=== PATIENT | male | born 1980 | race Caucasian/White ===

== ENCOUNTER 2021-12-06 11:31 | Emergency (ER) | payer BC, SELFPAY ==
[2021-12-06 11:40] VITALS: BP 124/80; PULSE 70; RESP 18; TEMP 36.9; O2SAT 99
--- NOTE | 2021-12-06 11:43 | ED.SKABFB ---
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 He denies any contact with plant or change in soap or any other kind of care product Related Data Allergies Allergy/AdvReac Type Severity Reaction Status Date / Time HYDROMORPHONE HCL Allergy Mild Hives Uncoded 12/06/21 12:07 Review of Systems Review of Systems: CONSTITUTIONAL: Denies fever, chills, sweats. EYES: Denies visual changes, redness, discharge. ENT: Denies rhinorrhea, congestion, sore throat, otalgia. CARDIOVASCULAR: Denies chest pain, palpitations, edema. RESPIRATORY: Denies dyspnea, wheezing, cough GASTROINTESTINAL: Denies abdominal pain, nausea, vomiting, diarrhea. GENITOURINARY: Denies dysuria, hematuria, abnormal discharge SKIN: Has rash on chest and back that looks particularly coalesced and dry at the bottom and behind knees NEUROLOGIC: Denies numbness, or focal weakness. PSYCHIATRIC: Denies anxiety or depression. [facility] Family History Family History Father Cerebrovascular accident Social History Social History Smoking status: Current every day smoker Comments At time of signature, I agree with nursing past medical, surgical, social and family history. There is no relevant family history pertinent to the presenting complaint. Exam Narrative: GENERAL: This is a well-nourished, well-developed patient, in mild distress. HEAD: normocephalic, atraumatic. EYES: . Sclera clear/white. Vision is grossly intact. EARS: External ears normal, Hearing grossly intact. NOSE: External nose normal without nasal discharge, nares without redness, no rhinorrhea. THROAT: Mucous membranes moist, NECK: Neck supple, non-tender CARDIOVASCULAR: Regular rate and rhythm without murmurs, gallops, or rubs. RESPIRATORY: Clear to auscultation. Breath sounds equal bilaterally. No wheezes, rales, or rhonchi. GASTROINTESTINAL: Not performed SKIN: warm, intact with red coalesced red rash on back, worse on the bottom part of back and across mid chest he also has coalesced rash on bilateral flexor area of knees NEURO: awake, alert, and oriented to person, place and time. There were no obvious focal neurologic abnormalities. Steady gait EXTREMITIES: Normal range of motion. BACK: Nontender without deformity Course Course Emergency Course: Patient comes with a rash with unknown etiology that occurs once a year only but does occur every year denies any change in care products are exposure to any kind of plant Given prednisone 60 here and started on Medrol Dosepak along with Pepcid, may use Benadryl if starts to itch Level of Care: Express Care Visit Vital Signs Vital signs: Vital Signs Temperature 98.4 F 12/06/21 11:40 Pulse Rate 70 12/06/21 11:40 Respiratory Rate 18 12/06/21 11:40 Blood Pressure 124/80 12/06/21 11:40 Pulse Oximetry 99 12/06/21 11:40 Oxygen Delivery Room Air 12/06/21 11:40 Temperature 98.4 F 12/06/21 11:40 Pulse Rate 70 12/06/21 11:40 Respiratory Rate 18 12/06/21 11:40 Blood Pressure 124/80 12/06/21 11:40 Pulse Oximetry 99 12/06/21 11:40 Oxygen Delivery Room Air 12/06/21 11:40 MDM - Skin/Abscess/Foreign Bdy MDM Narrative Medical decision making narrative: Rash looks Tal but occurs only once a year at the beginning of the season when it is warm and does not occur the rest of the year; cannot be tied to any kind of exposure or product Differential Diagnosis Differential diagnosis: Likely ab
[2021-12-06] MEDS: predniSONE 20 MG TABLET 60 MG PO (12:10)
== END 2021-12-06 12:12 | disposition home or self-care (01) ==
PROVIDERS: Emergency Provider Nurse Practitioner; PCP Family Medicine
DX: R21 Rash and other nonspecific skin eruption (principal); F17.200 Nicotine dependence, unspecified, uncomplicated
CPT/HCPCS: 99213; G0463; J7512

== ENCOUNTER 2024-05-25 09:23 | Emergency (ER) | payer BC, SELFPAY ==
--- NOTE | ~2024-05-25 | XR_ITS ---
EXAMINATION: XR foot LT min 3V DATE: 05/25/2024 10:18 INDICATION: Left foot foreign body. Abscess. TECHNIQUE: 3 views of left foot were obtained. COMPARISON: None. FINDINGS: Alignment is normal. No fracture. There is mild osteoarthritis of first metatarsophalangeal joint. There is an enthesophyte at the plantar aspect of calcaneal tuberosity. IMPRESSION: 1. No radiopaque foreign body. 2. No evidence of osteomyelitis. Reviewed, dictated and finalized at location A. [facility]
--- NOTE | 2024-05-25 09:31 | ED.SKABFB ---
HPI - Skin/Abscess/Foreign Bdy General Chief complaint: Skin/Abscess/Foreign Body Stated complaint: Abscess on Lt foot Time Seen by Provider: 05/25/24 09:31 Source: patient, RN notes reviewed and old records reviewed Mode of arrival: ambulatory Limitations: no limitations History of Present Illness HPI narrative: 43-year-old male to Express Care with complaint of painful lesion to left lateral plantar foot. Patient states he 1st noticed it on Wednesday and believed that there was a foreign body. Patient states he attempted to remove suspected foreign body twice at home without success. Patient states that he has to be on his feet a lot for work. patient denies pain radiating into lower extremity, drainage, fever, pertinent medical history. Patient reports taking 2 Aleve prior to arrival. Patient resting comfortably in exam room in no acute distress. Related Data Allergies Allergy/AdvReac Type Severity Reaction Status Date / Time HYDROMORPHONE HCL Allergy Mild Hives Uncoded 05/25/24 09:32 Review of Systems Review of Systems: All systems reviewed & are unremarkable except as noted in HPI and below Constitutional: Constitutional: Reports no additional constitutional complaints Eyes: Eyes: Reports no additional eye complaints ENT: Reports system reviewed and no additional complaints, except as documented Cardiovascular: Cardiovascular: Reports no additional cardiovascular complaints, Denies chest pain and Denies dyspnea Respiratory: Respiratory: Reports no additional respiratory complaints, Denies cough and Denies dyspnea Musculoskeletal: Musculoskeletal: Reports no additional musculoskeletal complaints Neurologic: Reports system reviewed and no additional complaints, except as documented Psychiatric: Psychiatric: Reports no additional psychiatric complaints PMFSH Family History Family History Father Cerebrovascular accident Social History Social History Smoking status: Current every day smoker Comments At the time of my signature, I reviewed and agree with the nursing past medical, surgical, social, and family history. There is no relevant family history pertinent to the patient complaint. Exam Const: General: cooperative, healthy appearing, comfortable, no acute distress, alert and well nourished Nutritional Appearance: well nourished Orientation/consciousness: patient oriented x3 Limitations: no limitations HENMT: Head: normal to inspection Ears: external ears normal Face/Nose/Sinus: Normal external nose present, Normal nares present, normal facial exam, No erythema and No edema Face and sinus: normal facial exam, no erythema and no edema Mouth: Yes Normal oral and palatal mucosa present Eyes: General: appearance normal, both eyes and all related structures Neck: Neck: normal visual inspection, full ROM and no meningeal signs Lymphatic: no lymphadenopathy noted and no lymphedema noted Chest: Chest palpation & inspection: normal inspection of the chest Resp: Effort & Inspection: normal respiratory effort and able to speak in complete sentences Auscultation: clear to auscultation bilaterally Cardio: Jugular venous distension: no JVD Rate: regular rate Rhythm: regular rhythm Back/Spine/Pelvis: Cervical Spine: cervical ROM normal Skin: General skin exam: normal color, no rashes or lesions noted and turgor normal Neuro: General: patient oriented x3, gait normal, moves all extremities and no meningeal signs Speech: normal speech Gait exam (Neuro): Normal gait present Extrem: General: normal to inspection, full ROM and capillary refill normal Psych: Appearance: grossly normal and well kempt Course Course Emergency Course: Some parts of this dictation were generated by voice recognition software and may contain typographical and/or grammatical inaccuracies. Level of Care: Express Care Visit Vital Signs Vital signs: Vital Signs Temperature 36.4 C L 05/25/24 09:33 Pulse Rate 77 05/25/24 09:33 Respiratory Rate 16 05/25/24 09:33 Blood Pressure 145/82 H 05/25/24 09:33 Pulse Oximetry 98 05/25/24 09:33 Temperature 36.4 C L 05/25/24 09:33 Pulse Rate 77 05/25/24 09:33 Respiratory Rate 16 05/25/24 09:33 Blood Pressure 145/82 H 05/25/24 09:33 Pulse Oximetry 98 05/25/24 09:33 reviewed Procedures Abscess I/D foot: Date of Incision: 05/25/24 Side (if applicable): left Local Anesthetic: lidocaine 1% Amount of anesthesia used (mL): 4 Technique: incised with #11 blade I&D Results: Pus and Blood Complications: pain MDM - Skin/Abscess/Foreign Bdy MDM Narrative Medical decision making narrative: 43-year-old male to Express Care with complaint of painful lesion to left lateral plantar foot. Patient states he 1st noticed it on Wednesday and believed that there was a foreign body. Patient states he attempted to remove suspected foreign body twice at home without success. Patient states that he has to be on his feet a lot for work. patient denies pain radiating into lower extremity, drainage, fever, pertinent medical history. Patient reports taking 2 Aleve prior to arrival. Patient resting comfortably in exam room in no acute distress. On exam, fluctuant, tender, 3 cm lesion to left plantar foot. I and D completed. patient tolerated well with some pain. Wound cleansed and dressed. Radiology impression: No radiopaque foreign body. No evidence of osteomyelitis. Patient appropriate for outpatient treatment and follow-up. Discharge instructions reviewed with patient, as well as provided in writing per nursing staff. The instructions also include specific and strict return/GO TO THE ER as well as f/u information. All questions have been answered, and the patient deny any further questions with discharge and discharge plan. Some parts of this dictation were generated by voice recognition software and may contain typographical and/or grammatical inaccuracies. Differential Diagnosis Differential diagnosis: Likely abscess of skin or subcutaneous tissue, viral exanthem, dermatophytosis, urticaria, herpes zoster, allergic reaction to drug, cellulitis, eczema, insect bites, impetigo and contact dermatitis Imaging Data Radiologist's impression: EXAMINATION: XR foot LT min 3V DATE: 05/25/2024 10:18 INDICATION: Left foot foreign body. Abscess. TECHNIQUE: 3 views of left foot were obtained. COMPARISON: None. FINDINGS: Alignment is normal. No fracture. There is mild osteoarthritis of first metatarsophalangeal joint. There is an enthesophyte at the plantar aspect of calcaneal tuberosity. IMPRESSION: 1. No radiopaque foreign body. 2. No evidence of osteomyelitis. Discharge Plan Discharge Clinical Impression: Abscess of left foot Patient Disposition: Home, Self-Care Condition: Stable Instructions: Abscess (ED) Additional Instructions: please finish entire course of antibiotic treatment elevate foot when possible please keep area clean and dry please review attached instructions regarding abscess and follow suggestions as tolerated alternate Tylenol and ibuprofen as needed for pain Please use the attached referral information to schedule appointment with Podiatry for new or worsening symptoms go directly to the emergency department Prescriptions: New clindamycin HCl 150 mg capsule 450 mg PO TID 5 Days Qty: 45 0RF Follow-up/Referrals: aMrtina Mcdermott MD [Primary Care Provider] - Angel Alexander Jr., DPM [Physician] -
[2024-05-25 09:33] VITALS: BP 145/82; PULSE 77; RESP 16; TEMP 36.4; O2SAT 98
[2024-05-25] MEDS: LIDOCAINE HCL 1% LOCAL INJ 2 ML AMPUL 4 ML INFILTRATE (10:48)
== END 2024-05-25 10:43 | disposition home or self-care (01) ==
PROVIDERS: Emergency Provider Nurse Practitioner Family; PCP Family Medicine
DX: L02.612 Cutaneous abscess of left foot (principal); F17.200 Nicotine dependence, unspecified, uncomplicated
CPT/HCPCS: 10060; 73630; 99213; G0463; J2003